=== PATIENT | male | born 1945 | race Caucasian/White ===

== ENCOUNTER → 2017-05-25 | Outpatient (CLI) | payer OTHER, BC ==
[~2017-05-25] MED LIST: ASPI81TA21 PO; ATOR-24 PO; AZEL30SP NAE; BUPRTAB51 PO; FLUT220A INH; LISI-729 PO; METO1TAB69 PO; MULT-845 PO; TRAZ50TA35 PO; WHEAPOW13 PO
[2017-05-25 15:02] LABS: BLOOD UREA NITROGEN 24 mg/dl (7-18); CREATININE 0.86 mg/dl (0.60-1.40)
== END | disposition home or self-care (01) ==
LOC: C.LAB 13:45
PROVIDERS: ATTEND Physician Assistant
DX: Z01.812 Encounter for preprocedural laboratory examination (principal)

== ENCOUNTER → 2017-05-26 | Outpatient (CLI) | payer OTHER, BC ==
[~2017-05-26] MED LIST changes: +GADAVIST IV PRN
--- NOTE | 2017-05-26 08:31 | DIAGNOSTIC IMAGING REPORT ---
MRI LUMBAR SPINE COMBINATION CLINICAL HISTORY: Low back pain with left leg radiculopathy. Left foot drop. TECHNIQUE: Sagittal and axial T1, T2 and STIR images were obtained. Images were acquired before and after administration of 7 cc of intravenous Gadavist COMPARISON STUDY: 07/24/2016 OBSERVATIONS: The vertebral bodies and posterior elements appear intact. There is no abnormal bony signal present to suggest a marrow replacement process. L1-2: There is a mild circumferential disc bulge. There is no significant spinal or foraminal stenosis L2-3: There is a mild circumferential disc bulge. There is a slight triangular configuration of the thecal sac. There is no significant foraminal narrowing L3-4: There is a minimal circumferential disc bulge. There is no significant spinal or foraminal stenosis L4-5: There is a circumferential disc bulge. There is left-sided foraminal narrowing. There is narrowing of the left lateral recess. L5-S1: There is a [id number] left-sided disc protrusion. Disc material abuts the left S1 nerve root. The conus medullaris and cauda equina appear normal. There are no pathologically enhancing masses. IMPRESSION: 1. No significant change when compared the prior July 2016 study 2. Multilevel spondylitic changes 3. Disc bulge and minimal spinal canal narrowing at the L2-3 level 4. Disc bulge, left-sided foraminal narrowing, and narrowing of the left lateral recess the L4-5 level. 5. Persistent left-sided disc protrusion at the L5-S1 level. The disc material abuts the left S1 nerve root. Electronically signed by: Pal Swift M.D. 05/26/2017 8:30 AM Dictated Date/Time: 05/26/2017 8:23 AM
== END | disposition home or self-care (01) ==
LOC: C.MRIBC 06:55
PROVIDERS: ATTEND Physician Assistant
DX: M51.16 Intervertebral disc disorders with radiculopathy, lumbar region (principal)

== ENCOUNTER → 2017-05-28 | Outpatient (CLI) | payer OTHER, BC ==
[~2017-05-28] MED LIST changes: -GADAVIST IV PRN
--- NOTE | 2017-05-28 12:03 | DIAGNOSTIC IMAGING REPORT ---
CHEST 2 VIEWS ROUTINE CLINICAL HISTORY: M21.379 M51.04 PREOPERATIVE CHEST COMPARISON STUDY: 09/04/2014 FINDINGS: The cardiac and mediastinal contours are normal. There is no evidence of focal pulmonary consolidation. There is no evidence of failure. No pleural effusions are visualized.[ Minimal lacelike interstitial thickening at the lung bases, is likely chronic IMPRESSION: No active disease in the chest. Electronically signed by: Pal Swift M.D. 05/28/2017 12:01 PM Dictated Date/Time: 05/28/2017 12:01 PM
--- NOTE | 2017-05-28 12:09 | DIAGNOSTIC IMAGING REPORT ---
L-SPINE FLEX/EXT BENDING MIN 6 CLINICAL HISTORY: Low back pain. COMPARISON STUDY: Lumbar spine MRI 05/26/2017. FINDINGS: AP, lateral, oblique, extension, and flexion views of the lumbar spine. Minimal levoscoliosis which could be positional. The sacrum is intact. Mild to moderate facet degenerative changes throughout the lumbar spine. No fracture or subluxation. Moderate disc space narrowing at L5-S1. Mild disc space narrowing throughout the remaining lumbar spine. Alignment remains intact throughout flexion and extension. Small endplate osteophytes within the lumbar spine. IMPRESSION: 1. Mild to moderate degenerative disease within the lumbar spine which is not significant changed. 2. No fracture or subluxation. 3. The alignment remains intact throughout flexion and extension. Electronically signed by: Shilo Gaitan M.D. 05/28/2017 12:07 PM Dictated Date/Time: 05/28/2017 12:04 PM
== END | disposition home or self-care (01) ==
LOC: C.RADBC 10:56
PROVIDERS: ATTEND Internal Medicine
DX: M54.5 Low back pain (principal); M47.896 Other spondylosis, lumbar region; M21.379 Foot drop, unspecified foot; Z01.810 Encounter for preprocedural cardiovascular examination

== ENCOUNTER → 2017-05-31 | Outpatient (CLI) | payer OTHER, BC ==
[2017-05-31 14:39] LABS: BASO % 0.1 %; BASO ABS # 0.01 K/uL (0-0.2); COMPLETE YES; EOS % 0.4 %; HEMATOCRIT 40.4 % (42-52); IG% 0.2 %; LYMPH % 25.6 %; LYMPH ABS # 2.11 K/uL (1.2-3.4); MEAN CORPUSCULAR HEMOGLOBIN 30.9 pg (25-34); MEAN CORPUSCULAR HGB CONC 33.9 g/dl (32-36); MEAN PLATELET VOLUME 8.5 fL (7.4-10.4); MONO % 11.6 %; NEUT % 62.1 %; PLATELET COUNT 243 K/uL (130-400); RED BLOOD COUNT 4.44 M/uL (4.7-6.1); WHITE BLOOD COUNT 8.25 K/uL (4.8-10.8)
[2017-05-31 14:43] LABS: ESTIMATED AVERAGE GLUCOSE 117 mg/dl; HA1C FLAG Normal (Normal)
[2017-05-31 14:45] LABS: INR 0.9 (0.9-1.1); PROTHROMBIN TIME (PATIENT) 10.1 SECONDS (9.0-12.0)
[2017-05-31 14:52] LABS: BLOOD UREA NITROGEN 17 mg/dl (7-18); BUN/CREATININE RATIO 18.9 (10-20); CALCIUM 8.4 mg/dl (8.5-10.1); CARBON DIOXIDE 31 mmol/L (21-32); CHLORIDE 98 mmol/L (98-107); GLUCOSE 90 mg/dl (70-99); SODIUM 134 mmol/L (136-145)
[2017-05-31 14:56] LABS: ALB/GLOB RATIO 1.2 (0.9-2); ALKALINE PHOSPHATASE 54 U/L (45-117); ALT/SGPT 58 U/L (12-78); AST/SGOT 37 U/L (15-37)
[2017-05-31 15:48] LABS: MANUAL MICROSCOPIC REQUIRED? NO; REVIEW REQ? NO; URINE APPEARANCE CLEAR (CLEAR); URINE BILIRUBIN NEG (NEG); URINE COLOR YELLOW; URINE EPITHELIAL CELL AUTO 0-5 /lpf (0-5); URINE NITRITE NEG (NEG); URINE PH 7.5 (4.5-7.5); URINE SPECIFIC GRAVITY 1.014 (1.000-1.030); UROBILINOGEN NEG (NEG); ZZUR CULT IF INDIC CLEAN CATCH NO
== END ==
LOC: C.LAB 13:19
PROVIDERS: ATTEND Physician Assistant
DX: M51.26 Other intervertebral disc displacement, lumbar region (principal); M21.379 Foot drop, unspecified foot; M51.04 Intervertebral disc disorders with myelopathy, thoracic region; Z79.899 Other long term (current) drug therapy

== ENCOUNTER → 2017-06-01 | Outpatient (CLI) | payer OTHER, BC ==
--- NOTE | 2017-06-01 13:56 | DIAGNOSTIC IMAGING REPORT ---
LUMBAR SPINE WITHOUT CLINICAL HISTORY: 71 years-old Male presenting with HNP, FOOT DROP. TECHNIQUE: Multidetector CT of the lumbar spine was performed without the use of intravenous contrast. IV contrast: None. A dose lowering technique was used consistent with the principles of ALARA (as low as reasonably achievable). COMPARISON: Correlation made to lumbar spine MR from 05/26/2017.. CT DOSE (mGy.cm): The estimated cumulative dose is 670.74 mGy.cm. FINDINGS: [employer] topogram: Unremarkable. Normal lumbar lordosis. Mild levoscoliotic curvature of the lumbar spine centered at L3-4. Vertebral body heights and alignment maintained. Intervertebral disc height loss at L5-S1 with intervertebral disc calcification. Multilevel degenerative changes noted at every level most severe at L5-S1 further detailed below: T12-L1: Normal. L1-2: Disc bulge without significant neural foraminal or spinal canal narrowing. L2-3: Prominent disc bulge with minimal right greater than left neural foraminal narrowing. L3-4: Disc bulge without significant effacement of the spinal canal. Mild neural foraminal narrowing bilaterally, right greater than left. L4-5: Minimal disc bulge with facet arthropathy and ligamentum flavum thickening results in circumferential narrowing of the spinal canal. Mild right and moderate left neural foraminal narrowing. L5-S1: Disc bulge and facet arthropathy result in mild right and moderate left neural foraminal narrowing. Midline calcified disc protrusion results in focal narrowing of the spinal canal that may abut the transiting left sacral nerve roots. Atherosclerosis. Paraspinal soft tissues otherwise normal. IMPRESSION: Multilevel degenerative changes most severe in the lower lumbar spine. Varying degrees of neural foraminal narrowing and spinal stenosis most severe at L4-5. Electronically signed by: Edgar Osorio M.D. 06/01/2017 1:54 PM Dictated Date/Time: 06/01/2017 1:49 PM
== END | disposition home or self-care (01) ==
LOC: C.CTS 13:33
PROVIDERS: ATTEND Physician Assistant
DX: M51.04 Intervertebral disc disorders with myelopathy, thoracic region (principal); M21.379 Foot drop, unspecified foot

== ENCOUNTER → 2017-10-06 | Outpatient (CLI) | payer OTHER, BC ==
[~2017-10-06] MED LIST changes: +METO100T44 PO; -METO1TAB69 PO
[2017-10-06 13:07] LABS: BASO % 0.3 %; BASO ABS # 0.02 K/uL (0-0.2); COMPLETE YES; EOS % 1.4 %; IG% 0.2 %; LYMPH % 30.4 %; LYMPH ABS # 1.78 K/uL (1.2-3.4); MEAN CELL VOLUME 93.9 fL (80-100); MEAN CORPUSCULAR HEMOGLOBIN 31.4 pg (25-34); MEAN CORPUSCULAR HGB CONC 33.5 g/dl (32-36); MEAN PLATELET VOLUME 9.2 fL (7.4-10.4); MONO % 10.6 %; NEUT % 57.1 %; PLATELET COUNT 232 K/uL (130-400); RED BLOOD COUNT 4.58 M/uL (4.7-6.1); WHITE BLOOD COUNT 5.85 K/uL (4.8-10.8)
[2017-10-06 13:33] LABS: ALT/SGPT 49 U/L (12-78); BLOOD UREA NITROGEN 15 mg/dl (7-18); BUN/CREATININE RATIO 18.2 (10-20); CALCIUM 8.9 mg/dl (8.5-10.1); CARBON DIOXIDE 30 mmol/L (21-32); CHLORIDE 100 mmol/L (98-107); CHOLESTEROL 137 mg/dl (0-200); CREATININE 0.82 mg/dl (0.60-1.40); GLUCOSE 92 mg/dl (70-99); POTASSIUM 4.1 mmol/L (3.5-5.1); SODIUM 136 mmol/L (136-145); TRIGLYCERIDES 52 mg/dl (0-150); VERY LOW DENSITY LIPOPROT CALC 10 mg/dl
[2017-10-06 13:43] LABS: ALB/GLOB RATIO 1.3 (0.9-2); ALKALINE PHOSPHATASE 67 U/L (45-117); AST/SGOT 28 U/L (15-37); CHOLESTEROL/HDL RATIO 1.9; HDL CHOLESTEROL 74 mg/dl; LDL CHOLESTEROL CALCULATED 53 mg/dl
[2017-10-07 04:36] LABS: ESTIMATED AVERAGE GLUCOSE 108 mg/dl; HA1C FLAG Normal (Normal)
--- NOTE | 2017-10-13 11:20 | CODING QUERY MEDICAL NECESSITY ---
SUPPORTING DIAGNOSIS NEEDED A supporting diagnosis is required for the test/procedure performed on this patient in order for us to be reimbursed by the patient's insurance. Please provide a supporting diagnosis for the following test/procedure listed below next to the test name along with your signature. *If there is no additional diagnosis for this patient that would support the following test/procedure please document that below next to the test/procedure. Test(s)/Procedure(s) that require a supporting diagnosis: * HEMOGLOBIN A1C DIAGNOSIS: * VITAMIN B12 DIAGNOSIS: * PSA DIAGNOSIS: Provider Signature: Date: Thank you Kym Cole [email or web address] Once completed, please kindly fax back to [phone] For questions please call [phone]
== END | disposition home or self-care (01) ==
LOC: C.LABBC 09:17
PROVIDERS: ATTEND Internal Medicine
DX: I48.92 Unspecified atrial flutter (principal); G47.33 Obstructive sleep apnea (adult) (pediatric); R53.83 Other fatigue; I10 Essential (primary) hypertension; I25.10 Atherosclerotic heart disease of native coronary artery without angina pectoris; I25.5 Ischemic cardiomyopathy

== ENCOUNTER 2018-01-13 10:54 | Emergency (ER) | payer OTHER, BC ==
[~2018-01-13] VITALS: Ht 177.8 cm; Wt 80.4 kg
[2018-01-13 10:58] VITALS: TEMP 36.7; Ht 177.8 cm; Wt 80.4 kg
[2018-01-13 11:11] VITALS: O2SAT 99
[2018-01-13] MEDS ORDERED: SODIUM CHLORIDE 0.9% 1000ML 1,000 ML IV STA (11:22)
[2018-01-13] MEDS ORDERED: TEMA15CA4 PO (11:41)
[2018-01-13] MEDS ORDERED: NAPR220T40 PO (11:41)
[2018-01-13] MEDS ORDERED: TROS20TA3 PO (11:41)
[2018-01-13 11:47] LABS: BASO % 0.4 %; BASO ABS # 0.02 K/uL (0-0.2); EOS % 1.5 %; EOS ABS # 0.08 K/uL (0-0.5); HEMATOCRIT 40.2 % (42-52); HEMOGLOBIN 13.8 g/dL (14.0-18.0); LYMPH % 34.6 %; LYMPH ABS # 1.85 K/uL (1.2-3.4); MEAN CELL VOLUME 88.7 fL (80-100); MEAN CORPUSCULAR HEMOGLOBIN 30.5 pg (25-34); MEAN CORPUSCULAR HGB CONC 34.3 g/dl (32-36); MEAN PLATELET VOLUME 8.5 fL (7.4-10.4); MONO ABS # 0.64 K/uL (0.11-0.59); NEUT % 51.5 %; NEUT ABS # 2.76 K/uL (1.4-6.5); PLATELET COUNT 206 K/uL (130-400); RED CELL DISTRIBUTION WIDTH CV 12.5 % (11.5-14.5); WHITE BLOOD COUNT 5.35 K/uL (4.8-10.8)
[2018-01-13 12:04] LABS: ALBUMIN 4.1 gm/dl (3.4-5.0); CALCIUM 8.8 mg/dl (8.5-10.1); CREATININE 0.85 mg/dl (0.60-1.40); POTASSIUM 4.3 mmol/L (3.5-5.1)
[2018-01-13 12:07] LABS: TOTAL PROTEIN 6.8 gm/dl (6.4-8.2)
--- NOTE | 2018-01-13 12:23 | DIAGNOSTIC IMAGING REPORT ---
CHEST ONE VIEW PORTABLE CLINICAL HISTORY: Chest pain. Right shoulder pain. COMPARISON STUDY: Chest radiograph May 28, 2017. FINDINGS: Lung volumes are normal. There is no consolidation or evidence for pulmonary edema. Cardiomediastinal silhouette is normal. IMPRESSION: No acute cardiopulmonary findings. Electronically signed by: Hernan Acuna M.D. 01/13/2018 12:22 PM Dictated Date/Time: 01/13/2018 12:21 PM
--- NOTE | 2018-01-13 12:23 | DIAGNOSTIC IMAGING REPORT ---
R SHOULDER MIN 2 VIEWS ROUTINE CLINICAL HISTORY: R shoulder pain COMPARISON: None FINDINGS: Alignment of the right shoulder is anatomic. No fracture or suspicious osseous lesion is present. There is severe osteoarthritis of the right acromioclavicular joint and mild to moderate osteoarthritis of the right glenohumeral joint. A few tiny calcific densities along the superolateral aspect of the right humeral head are noted. Subacromial space appears preserved. IMPRESSION: 1. No acute fracture. 2. 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 3. A few tiny calcific densities along the superolateral aspect of the right humeral head which may reflect osteophytes or minimal calcific tendinitis. Electronically signed by: Hernan Acuna M.D. 01/13/2018 12:21 PM Dictated Date/Time: 01/13/2018 12:20 PM
[2018-01-13 13:29] VITALS: BP 145/82; PULSE 60; O2SAT 98
--- NOTE | 2018-01-13 16:15 | EMERGENCY ROOM VISIT NOTE ---
ED Visit Note First contact with patient: 11:01 Chief Complaint: Right arm pain. History of Present Illness: Mr. Shell is a 72 year-old white male who ambulates into the ED accompanied by his complaining of right shoulder pain. Historically patient reports a history of coronary artery disease with an [place] and cardiac ablation and hypertension Patient reports a acute onset of anterior shoulder pain that started approximately 7 days ago. Since that time the pain has been constant. The pain is currently described as achy. He reports his pain was 8/10 before he took 2 Aleve tablets approximately 2 hours ago and now he rates his discomfort 3 /10. The pain is radiating down into the upper arm. He has not identified any aggravating or alleviating factors related to the pain. He denies any associated symptoms with his pain. He does report he talk to his family physician's office, Dr. Armstrong, and was referred to the ED because of his coronary artery disease for further evaluation and care. Patient denies fevers, chills, sweats, skin eruptions, skin color changes, upper respiratory tract symptoms, wheezing, cough, shortness of breath, orthopnea, dependent edema, previous clots, claudication, cramping, recent surgery/inactivity/extended travel, abdominal pain, nausea, vomiting, diarrhea, constipation, rectal bleeding, black/tarry stools, urinary symptoms, back/flank pain. Review of Systems: As noted above in history of present illness. All body systems were reviewed and found to be negative as noted above. Past Medical History: As previously noted and unspecified skin disorder, gastric reflux, urinary retention, depression, status post ruptured appendix with sepsis. Current Medications: Medications Dose Route/Sig Max Daily Dose Days Date Category Aleve (Naproxen Sodium) 220 Mg Tab 220 Mg PO UD 01/13/18 Reported Restoril (Temazepam) 15 Mg Cap 15 Mg PO HS PRN 01/13/18 Reported Trospium Chloride 20 Mg Tab 20 Mg PO 1200 01/13/18 Reported Prinivil (Lisinopril) 5 Mg Tab 5 Mg PO HS 01/28/16 Reported Flovent Hfa 220MCG Inhaler (Fluticasone Propionate Hfa) 220 Mcg/ Aer 2-3 Puffs INH BID PRN 01/28/16 Reported Dymista (Azelastine Hcl-Fluticasone Pro) 1 Spr Spr 1 [place] YOANDY BID PRN 01/28/16 Reported Trazodone (Trazodone HCl) 50 Mg Tab 25 Mg PO HS 01/15/15 Reported Lipitor (Atorvastatin Calcium) 40 Mg Tab 40 Mg PO HS 01/15/15 Reported Toprol-Xl (Metoprolol Succinate) 100 Mg Tabcr 100 Mg PO QAM 09/01/14 Reported Ecotrin Or Generic (Aspirin) 81 Mg Tab 81 Mg PO 1200 09/01/14 Reported Benefiber (Wheat Dextrin) 1 Pow Pow 1 Tbs PO QAM 10/06/13 Reported Centrum Silver Adult 50+ (Multiple Vitamins W/ Minerals) 1 Tab Tab 1 Tab PO QAM 10/06/13 Reported Wellbutrin-Xl (Bupropion HCl) 300 Mg Tabcr 300 Mg PO QAM 08/22/09 Reported Allergies to Medications: Patient denies Social History: Patient is not employed, he is on disability; he feels safe in his home environment; he denies tobacco use and admits to alcohol use. Physical Examination: Vital Signs: Date Time Temp Pulse Resp B/P (MAP) Pulse Ox O2 Delivery O2 Flow Rate FiO2 01/13/18 13:29 60 16 145/82 98 01/13/18 13:07 152/82 01/13/18 13:01 170/96 01/13/18 12:36 58 22 97 Room Air 01/13/18 12:31 159/84 01/13/18 12:30 58 20 96 Room Air 01/13/18 12:12 155/77 01/13/18 12:01 164/80 01/13/18 12:00 60 22 01/13/18 11:45 60 16 164/84 97 Room Air 01/13/18 11:31 154/85 01/13/18 11:30 59 20 97 Room Air 01/13/18 11:23 61 01/13/18 11:12 65 22 174/86 99 Room Air 01/13/18 11:11 99 Room Air 01/13/18 10:58 36.7 63 18 149/82 97 Room Air GENERAL: 72-year-old female in no acute distress, nontoxic-appearing, afebrile and hemodynamically stable. NEUROLOGICAL: Awake, alert and oriented to person, place and time. Answering questions appropriately and following commands. Normal gait. Good hand eye coordination. SKIN: Warm, dry and pink. No soft tissue eruptions or trauma noted. HEENT: Atraumatic and normocephalic. PERRLA. Sclera white and conjunctiva pink. Oral cavity moist and pink. Pharynx is nonerythematous or edematous. Speech normal. No lymphadenopathy. Trachea midline. No jugular venous distention. No carotid bruits. BACK: No tenderness over the bony spine. No CVA tenderness. THORAX: Lungs sounds are clear to auscultation and equal bilaterally with symmetrical chest wall. No wheezing, rales or rhonchi. No crepitus, tenderness , subcutaneous air or deformities noted. HEART: Regular rate and rhythm. No gallops, rubs or murmurs are appreciated. No lifts, heaves or thrills. PMI is not displaced. ABDOMEN: Flat, soft and nontender. Positive bowel sounds in all quadrants. No guarding, rigidity or organomegaly. EXTREMITIES: Moves all extremities well on command and with purpose. All distal neurovascular statuses are intact and equal bilaterally. No dependent edema or calf tenderness/cords. ED Course: Patient is assessed as noted above. Laboratory Testing: Test 01/13/18 11:33 01/13/18 11:39 Range/Units White Blood Count 5.35 4.8-10.8 K/uL Red Blood Count 4.53 4.7-6.1 M/uL Hemoglobin 13.8 14.0-18.0 g/dL Hematocrit 40.2 42-52 % Mean Corpuscular Volume 88.7 80-100 fL Mean Corpuscular Hemoglobin 30.5 25-34 pg Mean Corpuscular Hemoglobin Concent 34.3 32-36 g/dl Platelet Count 206 130-400 K/uL Mean Platelet Volume 8.5 7.4-10.4 fL Neutrophils (%) (Auto) 51.5 % Lymphocytes (%) (Auto) 34.6 % Monocytes (%) (Auto) 12.0 % Eosinophils (%) (Auto) 1.5 % Basophils (%) (Auto) 0.4 % Neutrophils # (Auto) 2.76 1.4-6.5 K/uL Lymphocytes # (Auto) 1.85 1.2-3.4 K/uL Monocytes # (Auto) 0.64 0.11-0.59 K/uL Eosinophils # (Auto) 0.08 0-0.5 K/uL Basophils # (Auto) 0.02 0-0.2 K/uL RDW Standard Deviation 40.0 36.4-46.3 fL RDW Coefficient of Variation 12.5 11.5-14.5 % Immature Granulocyte % (Auto) 0.0 % Immature Granulocyte # (Auto) 0.00 0.00-0.02 K/uL Sodium Level 132 136-145 mmol/L Potassium Level 4.3 3.5-5.1 mmol/L Chloride Level 98 98-107 mmol/L Carbon Dioxide Level 28 21-32 mmol/L Anion Gap 6.0 3-11 mmol/L Blood Urea Nitrogen 15 7-18 mg/dl Creatinine 0.85 0.60-1.40 mg/dl Est Creatinine Clear Calc Drug Dose 81.1 ml/min Estimated GFR () 100.9 Estimated GFR (Non- 87.1 BUN/Creatinine Ratio 17.1 10-20 Random Glucose 91 70-99 mg/dl Calcium Level 8.8 8.5-10.1 mg/dl Total Bilirubin 0.6 0.2-1 mg/dl Direct Bilirubin 0.2 0-0.2 mg/dl Aspartate Amino Transf (AST/SGOT) 28 15-37 U/L Alanine Aminotransferase (ALT/SGPT) 40 12-78 U/L Alkaline Phosphatase 58 45-117 U/L Total Protein 6.8 6.4-8.2 gm/dl Albumin 4.1 3.4-5.0 gm/dl Lipase 193 73-393 U/L Bedside Troponin I < 0.030 0-0.045 ng/ml Chest x-ray: Was read by myself and the radiologist showing no acute infiltrates , effusions or pneumothorax. Normal heart silhouette and bony anatomy. Right Shoulder X-Rays: Were read by myself and the radiologist showing no acute fractures or dislocations. Severe osteoarthritis of the right AC joint and mild to moderate arthritis of the right glenohumeral joint. A few tiny calcified densities along the superior lateral aspect of the right humeral head. EKG: Was read by myself and reviewed with Dr. Harry; and shows sinus rhythm with first-degree AV block. Ventricular rate 61 bpm. There is also a right bundle branch block and a right anterior fascicular block. No acute ischemic changes. This was compared to a previous from April 2016 and shows no acute changes except for improvement of his ST elevation in lead V3 and minimally in V2. Patient was hydrated with normal saline. Patient was reassessed multiple times during his stay in the emergency department. Patient's case was reviewed with Dr. Harry; he independently assessed the patient we agreed on diagnostic approach, treatment, disposition and plan. Patient was educated about today's findings and educated on his treatment plan; he verbalized understanding and agreement with this plan. Clinical Impression: Right anterior shoulder pain. Decision-Making: Initially my differential diagnosis I considered osteoarthritis , acromion clavicular joint separation, fracture, acute coronary syndrome, and other causes. Disposition: Patient discharged to home in stable condition; prior to departure he was reassessed and subjectively reported he was pain-free. Plan: Patient was encouraged alternate ibuprofen and acetaminophen every 3 hours for pain. Patient was encouraged to use ice. Patient was encouraged to keep his upcoming appointment with orthopedics for definitive care and treatment. Patient was encouraged return the ED for worsening/uncontrolled pain, uncontrolled swelling, arm weakness/numbness/tingling or any new/concerning symptoms.
--- NOTE | 2018-01-13 18:14 | EMERGENCY ROOM VISIT NOTE ---
ED Visit Note First contact with patient: 11:08 The patient was seen and examined with Leonel Rossi PA-C. I agree with the history, physical and findings. Please see the note for disposition and details. The patient has had constant shoulder symptoms. These are reproducible on examination. Seems to be consistent with a bursitis or tendinitis in the supraspinatus region. He notes abduction of the arm against resistance causes discomfort. He does have pain reproducible with palpation in this area and with abduction on resistance during the examination his symptoms are reproduced. Workup was unremarkable from a cardiac standpoint. He has pending appointment with orthopedics. The patient has no chest pain or other atypical cardiac symptoms. Conservative management was discussed. The patient and feel very comfortable. If he worsens any way he will return. I gave my usual and customary discussion regarding this issue.
== END 2018-01-13 13:25 | disposition home or self-care (01) ==
LOC: C.EDB 10:56 → C.EDC 13:25
DX: M25.511 Pain in right shoulder (principal); I10 Essential (primary) hypertension; I25.10 Atherosclerotic heart disease of native coronary artery without angina pectoris; I25.2 Old myocardial infarction; F32.9 Major depressive disorder, single episode, unspecified; Z98.890 Other specified postprocedural states; Z79.82 Long term (current) use of aspirin; Z79.899 Other long term (current) drug therapy

== ENCOUNTER → 2018-02-02 | Outpatient (CLI) | payer OTHER, BC ==
[~2018-02-02] MED LIST changes: +ASPI-319 PO; -ASPI81TA21 PO; +NAPR220T40 PO; +TEMA15CA4 PO; +TROS20TA3 PO
== END | disposition home or self-care (01) ==
LOC: C.PATHSPEC 17:49
PROVIDERS: ATTEND Plastic Surgery
DX: C43.59 Malignant melanoma of other part of trunk (principal)